=== PATIENT | female | born 1970 | race Caucasian/White ===

== ENCOUNTER 2016-09-10 08:13 | Emergency (ER) | payer OTHER ==
[2016-09-10 08:49] VITALS: TEMP 98.7; BMI 24.5
[2016-09-10 08:59] LABS: AUTOMATED BASOPHIL 0.4 % (0-2); AUTOMATED EOSINOPHIL 2.4 % (0-5); AUTOMATED LYMPH 34.8 % (17-44); AUTOMATED MONOCYTE 16.7 % (3-10); AUTOMATED NEUTROPHIL 45.7 % (45-76); MPV 7.3 fL (7.4-10.4)
[2016-09-10 09:24] LABS: LEUKOCYTES/URINE NEG (NEGATIVE); NITRITE/URINE NEG (NEGATIVE); RBC/URINE 0-2 (0-5); URINE OCCULT BLOOD 1+ (NEG/TRACE); WBC/URINE 0-2 (0-5)
[2016-09-10 09:30] LABS: BLOOD UREA NITROGEN 11 MG/DL (7-17); CALCIUM 9.1 MG/DL (8.4-10.2); CALCULATED OSMOLALITY 270 MOs/Kg (270-290); CHLORIDE 101 mEq/L (98-107); GLUCOSE 93 MG/DL (70-99); SODIUM LEVEL 141 mEq/L (137-146); TOTAL PROTEIN 7.5 G/DL (6.3-8.2)
[2016-09-10] MEDS ORDERED: NS 1,000 ML IV ONE (10:22)
--- NOTE | 2016-09-10 10:22 | EDPRACDOC ---
- General Information Chief Complaint: Abdominal Pain Stated Complaint: VOMITING/ RT ABD PAIN Time Seen by Provider: 09/10/16 10:00 Information Source: Patient Mode Of Arrival: Car Home Medications: Home Medications Fexofenadine HCl [Malorie] 180 mg PO DAILY PRN 04/16/13 Cholecalciferol (Vitamin D3) [Vitamin D3 (cholecalciferol)] 5,000 unit PO DAILY 09/10/16 Glucosam HCl/Chondro [place] A/C/Mn [Glucosamine-Chondroitin Cap] 1 cap PO DAILY 11/22 Hydrocodone Bit/Acetaminophen [Hydrocodon-Acetaminophen 5-325] 1 - 2 tab PO Q6H PRN #7 tab 09/10/16 Ibuprofen Tablet [Motrin] 800 mg PO TID #30 tab 09/10/16 Krill/[place]-3/Dha/Epa/Lipids [Krill Oil 300 mg Softgel] 1 cap PO DAILY 09/10/16 Ondansetron HCl [Zofran] 4 mg PO TID PRN #14 tablet 09/10/16 Ranitidine [Zantac] 150 mg PO BID 09/10/16 Ubidecarenone [Co Q10] 100 mg PO DAILY 09/10/16 Vitamin E Acid Succinate [Vitamin E] 400 unit PO DAILY 09/10/16 Allergies/Adverse Reactions: Allergies Allergy/AdvReac Type Severity Reaction Status Date / Time codeine Allergy Nausea/Vomi Verified 09/10/16 08:46 ting - History of Present Illness Onset: 3 days HPI: RECENT NAUSEA VOMITING DIARRHEA, HOWEVER THIS HAD RESOLVED. Pain Location: Reports: RLQ Pain Context: Reports: Spontaneous Pain Severity: Moderate Pain Quality: Reports: Aching, Colicky Last Menstrual Period: ablasion Modifying Factors: improves with: Movement Female Associated Signs & Symptoms: Reports: Nausea. Denies: Vomiting, Diarrhea , Dysuria, Fever Oral Intake: Decreased Urinary Output: Decreased ED Past Medical History - History Reviewed Yes Nurses notes reviewed and agree except as marked - Patient Medical History GI/ History: Reports: Ulcer Psychological History: Denies: Depression Systemic History: Denies: Cancer Surgical History: Reports: Cholecystectomy, Tonsillectomy/Adnoidectomy. Denies : Appendectomy Additional Past Surgical History: BILATERAL TUBAL LIGATION - Family Medical History Reports: Hypertension, Stroke, Cardiac Disorders. Denies: Diabetes, Cancer - Social Medical History Smoking Status: Former smoker ETOH: None Substance Abuse: None Lives In: Home EDM Review of Systems - Review of Systems ROS Negative Except as Marked: Yes All systems reviewed and were negative except as marked - Physical Exam Constitutional: Alert, Distress (UNCOMFORTABLE) Oriented to: Time, Person, Place Last recorded Vital Signs: Last Vital Signs Temp 98.7 F 09/10/16 08:46 Pulse 75 09/10/16 11:35 Resp 18 09/10/16 10:36 BP 100/74 09/10/16 11:35 Pulse Ox 95 09/10/16 11:35 Oxygen Pulse Oxygen Saturation 95 O2 Device Room Air Oxygen Flow Rate Fraction of Inspired Oxygen ( FIO2) - HEENT Head: Normal Eye Exam: Normal. negative: Pale Conjunctiva, Scleral Icterus Oropharynx: Membranes Dry - Respiratory/Cardiovascular Respiratory: Normal - CTA Cardiovascular: Normal - GI Auscultation: Normal Tenderness: Moderate, Guarding (VOLUNTARY), RLQ, Other (REFERRED PAIN TO RIGHT LOWER QUADRANT) Mayer's Sign: Negative - Musculoskeletal Back: Normal. negative: CVA Tenderness Extremities: Normal - Integumentary Skin: Normal - Neurologic Memory Impaired: Normal Mood Description: Normal Thought: Coherent Perception: Normal - Differential Diagnosis Appendicitis, Diverticulitis, Inflammatory Bowel Dz, UTI, Ureterolithiasis - Results 09/10/16 08:50 09/10/16 08:50 WBC 4.8 xk/uL (3.8-10.8) 09/10/16 08:50 RBC 5.28 xM/uL (4.20-5.40) 09/10/16 08:50 Hgb 15.9 g/dL (12.0-16.0) 09/10/16 08:50 Hct 45.8 % (36-47) 09/10/16 08:50 MCV 87 fL (81-99) 09/10/16 08:50 MCH 30.0 pg (27-32) 09/10/16 08:50 MCHC 34.6 g/dl (33-36) 09/10/16 08:50 RDW 13.1 % (11.5-14.5) 09/10/16 08:50 Plt Count 283 xk/uL (130-400) 09/10/16 08:50 MPV 7.3 fL (7.4-10.4) L 09/10/16 08:50 Neut % (Auto) 45.7 % (45-76) 09/10/16 08:50 Lymph % (Auto) 34.8 % (17-44) 09/10/16 08:50 [place] % (Auto) 16.7 % (3-10) H 09/10/16 08:50 Eos % (Auto) 2.4 % (0-5) 09/10/16 08:50 Baso % (Auto) 0.4 % (0-2) 09/10/16 08:50 Absolute Neuts (auto) 2.16 xk/uL (1.7-8.2) 09/10/16 08:50 Absolute Lymphs (auto) 1.63 xk/uL (0.65-4.75) 09/10/16 08:50 Sodium 141 mEq/L (137-146) 09/10/16 08:50 Potassium 3.8 mEq/L (3.5-5.1) 09/10/16 08:50 Chloride 101 mEq/L (98-107) 09/10/16 08:50 Carbon Dioxide 28 mMOL/L (22-33) 09/10/16 08:50 Anion Gap 16 mEq/L (8-16) 09/10/16 08:50 BUN 11 MG/DL (7-17) 09/10/16 08:50 Creatinine 0.60 MG/DL (0.52-1.04) 09/10/16 08:50 Estimated GFR (MDRD) > 60 mL/min (>=60) 09/10/16 08:50 Glucose 93 MG/DL (70-99) 09/10/16 08:50 Calculated Osmolality 270 MOs/Kg (270-290) 09/10/16 08:50 Calcium 9.1 MG/DL (8.4-10.2) 09/10/16 08:50 Total Bilirubin 0.9 MG/DL (0.2-1.3) 09/10/16 08:50 AST 28 IU/L (14-36) 09/10/16 08:50 ALT 32 IU/L (9-52) 09/10/16 08:50 Alkaline Phosphatase 71 IU/L (38-126) 09/10/16 08:50 Total Protein 7.5 G/DL (6.3-8.2) 09/10/16 08:50 Albumin 4.1 G/DL (3.5-5.0) 09/10/16 08:50 Urine Color Yellow 09/10/16 08:55 Urine Clarity Clear 09/10/16 08:55 Urine pH 6.0 (5.0-8.0) 09/10/16 08:55 Ur Specific [place] 1.005 (1.003-1.035) 09/10/16 08:55 Urine Protein Neg (NEG/TRACE) 09/10/16 08:55 Urine Glucose (UA) Neg (NEGATIVE) 09/10/16 08:55 Urine Ketones 1+ (NEGATIVE) H 09/10/16 08:55 Urine Occult Blood 1+ (NEG/TRACE) H 09/10/16 08:55 Urine Nitrite Neg (NEGATIVE) 09/10/16 08:55 Urine Bilirubin Neg (NEGATIVE) 09/10/16 08:55 Urine Urobilinogen <2.0 MG/DL (0-1) 09/10/16 08:55 Ur Leukocyte Esterase Neg (NEGATIVE) 09/10/16 08:55 Urine RBC 0-2 (0-5) 09/10/16 08:55 Urine WBC 0-2 (0-5) 09/10/16 08:55 Ur Epithelial Cells 2+ 09/10/16 08:55 Urine Bacteria Few (NEG/FEW) 09/10/16 08:55 Urine Mucus Occ (NEG/OCC) 09/10/16 08:55 Lab Results 09/10/16 09/10/16 09/10/16 08:55 08:50 08:50 WBC 4.8 RBC 5.28 Hgb 15.9 Hct 45.8 MCV 87 MCH 30.0 MCHC 34.6 RDW 13.1 Plt Count 283 MPV 7.3 L Neut % (Auto) 45.7 Lymph % (Auto) 34.8 [place] % (Auto) 16.7 H Eos % (Auto) 2.4 Baso % (Auto) 0.4 Absolute Neuts (auto) 2.16 Absolute Lymphs (auto) 1.63 Sodium 141 Potassium 3.8 Chloride 101 Carbon Dioxide 28 Anion Gap 16 BUN 11 Creatinine 0.60 Estimated GFR (MDRD) > 60 Glucose 93 Calculated Osmolality 270 Calcium 9.1 Total Bilirubin 0.9 AST 28 ALT 32 Alkaline Phosphatase 71 Total Protein 7.5 Albumin 4.1 Urine Color Yellow Urine Clarity Clear Urine pH 6.0 Ur Specific [place] 1.005 Urine Protein Neg Urine Glucose (UA) Neg Urine Ketones 1+ H Urine Occult Blood 1+ H Urine Nitrite Neg Urine Bilirubin Neg Urine Urobilinogen <2.0 Ur Leukocyte Esterase Neg Urine RBC 0-2 Urine WBC 0-2 Ur Epithelial Cells 2+ Urine Bacteria Few Urine Mucus Occ - Diagnostic Imaging Abdomen Image interpreted by: Radiologist 09/10/16 12:18 Patient Name: AKASH STOUT LOC: ED : 1970 AGE: 46 Order Date:09/10/16 Date of Service:11/22 Report # [id number] Ord Physician: Nella Small MD Exam # [id number] Emergency Physician: Nella Small MD Exam(s): [id number] CT/CT ABD-PELV W/IV CM CLINICAL DATA: Right lower quadrant pain with nausea and vomiting for 3 days. EXAM: CT ABDOMEN AND PELVIS WITH CONTRAST TECHNIQUE: Multidetector CT imaging of the abdomen and pelvis was performed using the standard protocol following bolus administration of intravenous contrast. CONTRAST: 80 mL Isovue 370 COMPARISON: 04/09/2013 FINDINGS: Minimal dependent atelectasis is noted in the lung bases. The gallbladder is surgically absent. There is no biliary dilatation. The liver, spleen, adrenal glands, kidneys, and pancreas have an unremarkable enhanced appearance. Mild periportal edema on the prior study has resolved. There is no evidence of bowel obstruction. The appendix is not definitely identified, however no inflammatory changes are seen in the right lower quadrant. The bladder, uterus, and ovaries are unremarkable. No free fluid or enlarged lymph nodes are identified. Moderate disc degeneration is present at L5-S1 with vacuum disc phenomenon and sclerotic endplate changes. IMPRESSION: No acute abnormality identified in the abdomen or pelvis. Electronically Signed By: Rob Cárdenas M.D. On: 09/10/2016 11:51 Electronically Signed By: Vishnu Cárdenas MD Electronically Signed Date/Time: [id number] Dictate Date/Time: 09/10/16 1143 Technologist: Gerald Mercedes Transcribed By: Sergo Transcribed Date/Time: 09/10/16 1151 - Departure Disposition: Home Condition: Stable Final Diagnosis: Abdominal pain Instructions: Acute Abdominal Pain (ED) Education/Counseling Given To: Patient, Family Member Education/Counseling Given Regarding: Diagnosis, Treatment, Prognosis Referrals: Vishnu Colin MD [Primary Care Provider] - As Needed Prescriptions: Hydrocodone Bit/Acetaminophen [Hydrocodon-Acetaminophen 5-325] 1 - 2 tab PO Q6H PRN #7 tab PRN Reason: Pain Ibuprofen Tablet [Motrin] 800 mg PO TID #30 tab Ondansetron HCl [Zofran] 4 mg PO TID PRN #14 tablet PRN Reason: NAUSEA OR VOMITING
[2016-09-10] MEDS ORDERED: ONDANSETRON HCL 4 MG/2 ML VIAL IV ONE (10:37)
[2016-09-10] MEDS ORDERED: Pharmacy Review for Metformin - IV Contrast Given SCH (11:00)
[2016-09-10] MEDS ORDERED: MORPHINE 4 MG/ML INJECTION IV ONE (11:36)
--- NOTE | 2016-09-10 11:53 | DIRPT ---
CLINICAL DATA: Right lower quadrant pain with nausea and vomiting for 3 days. EXAM: CT ABDOMEN AND PELVIS WITH CONTRAST TECHNIQUE: Multidetector CT imaging of the abdomen and pelvis was performed using the standard protocol following bolus administration of intravenous contrast. CONTRAST: 80 mL Isovue 370 COMPARISON: 04/09/2013 FINDINGS: Minimal dependent atelectasis is noted in the lung bases. The gallbladder is surgically absent. There is no biliary dilatation. The liver, spleen, adrenal glands, kidneys, and pancreas have an unremarkable enhanced appearance. Mild periportal edema on the prior study has resolved. There is no evidence of bowel obstruction. The appendix is not definitely identified, however no inflammatory changes are seen in the right lower quadrant. The bladder, uterus, and ovaries are unremarkable. No free fluid or enlarged lymph nodes are identified. Moderate disc degeneration is present at L5-S1 with vacuum disc phenomenon and sclerotic endplate changes. IMPRESSION: No acute abnormality identified in the abdomen or pelvis. Electronically Signed By: Rob Cárdenas M.D. On: 09/10/2016 11:51
[2016-09-10 13:29] VITALS: BP 99/54; PULSE 72
== END 2016-09-10 13:25 | disposition home or self-care (01) ==
LOC: ED 08:13
DX: R10.9 Unspecified abdominal pain (principal)
CPT/HCPCS: 36415; 74177; 80053; 81001; 85025; 96361; 96374; 96375; 99284; A9698; J2270; J2405